=== PATIENT | male | born 1990 | race Caucasian/White ===

== ENCOUNTER 2021-02-09 13:30 | Emergency (ER) | payer SELFPAY ==
[~2021-02-09] VITALS: Ht 188 cm; Wt 75.2 kg
[2021-02-09] MEDS ORDERED: DIPH,PERTUSS(ACELL),TET VAC/PF 0.5 ML IM-VACC ONE ×2 (14:00→14:10)
[2021-02-09] MEDS ORDERED: LIDOCAINE-MPF 1%, 5ML INFIL ONE (14:00)
[2021-02-09] MEDS ORDERED: BUPIVACAINE 0.25% INFIL ONE (14:00)
[2021-02-09] MEDS ORDERED: BUPIVACAINE 0.25% ONE (14:09)
[2021-02-09] MEDS ORDERED: LIDOCAINE-MPF 1%, 5ML ONE (14:10)
[2021-02-09 15:46] VITALS: BP 122/78
--- NOTE | 2021-02-09 15:47 | NUR ---
wound dressed with xeroform, abx cream and finger splint in extention, mirta bandage. staets feels improved. wound care reviewed, and follow up care & RX
== END 2021-02-09 15:48 | disposition home or self-care (01) ==
LOC: ED 13:50
DX: S61.211A Laceration without foreign body of left index finger without damage to nail, initial encounter (principal); X58.XXXA Exposure to other specified factors, initial encounter; Y93.89 Activity, other specified; Y92.89 Other specified places as the place of occurrence of the external cause; Y99.8 Other external cause status
CPT/HCPCS: 12041; 90471; 90715; 99284